=== PATIENT | male | born 1995 | race Caucasian/White ===

== ENCOUNTER 2016-12-15 14:24 | Emergency (ER) | payer OTHER ==
--- NOTE | 2016-12-15 14:52 | ER Document Report ---
ED Medical Screen (RME) - General Stated Complaint: POSSIBLE CYST Notes: 21 yo male c/o cyst to penis. noted about an 1 hr ago. pt was having sex, says cyst ruptured.
[2016-12-15 14:55] VITALS: BP 137/75
--- NOTE | 2016-12-15 16:34 | ER Document Report ---
HPI - HPI Patient complains to provider of: possible cyst on penis Onset: This afternoon - 12 noon Onset/Duration: Sudden Pain Level: 3 Context: 21-year-old male having intercourse with his at noon today noticed a swelling that was fluid-filled just below the head of his penis. There is no pain or irritation. No open sores. This is never occurred before. His is willing to be the standby in the room. Hx psoriasis, but never had on penis Associated Symptoms: None Exacerbated by: Denies Relieved by: Denies Similar symptoms previously: No Recently seen / treated by doctor: No - ROS ROS below otherwise negative: Yes Systems Reviewed and Negative: Yes All other systems reviewed and negative - DERM Skin Color: Normal Past Medical History - General Information source: Patient - Social History Smoking Status: Current Every Day Smoker Chew tobacco use (# tins/day): No Frequency of alcohol use: None Drug Abuse: None Lives with: Spouse/Significant other Family History: Reviewed & Not Pertinent Patient has suicidal ideation: No Patient has homicidal ideation: No Renal/ Medical History: Denies: Hx Peritoneal Dialysis Skin Medical History: Reports Hx Psoriasis Past Surgical History: Reports: Other - male benign breast tissue removed Vertical Provider Document - CONSTITUTIONAL Agree With Documented VS: Yes Exam Limitations: No Limitations - INFECTION CONTROL TRAVEL OUTSIDE OF THE [place] IN LAST 30 DAYS: No - HEENT HEENT: Normocephalic - NECK Neck: Supple - RESPIRATORY O2 Sat by Pulse Oximetry: 96 - MUSCULOSKELETAL/EXTREMETIES Musculoskeletal/Extremeties: MAEW, FROM - NEURO Level of Consciousness: Awake, Alert - DERM Integumentary: Rash - mild inflamed head of penis psoriasis lesions Course - Re-evaluation Re-evalutation: 12/15/16 16:50 prior to exam he states that the swelling has gone down, but now sees rash. - Vital Signs Vital signs: Temp Pulse Resp BP Pulse Ox 98.1 F 81 18 137/75 H 96 12/15/16 14:51 12/15/16 14:51 12/15/16 14:51 12/15/16 14:51 12/15/16 14:51 Discharge - Discharge Clinical Impression: psoriasis head of penis Condition: Good Disposition: HOME, SELF-CARE Instructions: Psoriasis ([facility]), Topical Steroid Cream or Ointment ([facility]) Additional Instructions: over The counter steroid ointment to the area 3 times a day. See the organ pipe maker metal if gets worse or persists To ER any concerns
== END 2016-12-15 17:01 | disposition home or self-care (01) ==
LOC: ER 14:24
DX: L40.9 Psoriasis, unspecified (principal); F17.200 Nicotine dependence, unspecified, uncomplicated
CPT/HCPCS: 99282

== ENCOUNTER 2018-02-14 07:56 | Observation (INO) | payer BC, OTHER ==
[2018-02-14] MEDS ORDERED: KETOROLAC TROMETHAMINE INJ/PF 30 MG/1 ML SDV IV ONE (08:28)
[2018-02-14] MEDS ORDERED: NORMAL SALINE 1000 ML 1,000 ML IV ONE ×2 (08:28→10:16)
--- NOTE | 2018-02-14 08:28 | ER Document Report ---
ED GI/ - General Chief Complaint: Abdominal Pain Stated Complaint: ABDOMINAL PAIN Time Seen by Provider: 02/14/18 08:28 Mode of Arrival: Ambulatory Information source: Patient Notes: 22-year-old male complaining of right lower quadrant and right flank pain for 2 days. This morning it is the worst it has been. He is unable to keep still and has nausea/vomiting. No penis or testicular pain no dysuria frequency or urgency. No hematuria. He has been taking mag citrate he thought that he was constipated, having diarrhea now. TRAVEL OUTSIDE OF THE [place] IN LAST 30 DAYS: No - Related Data Allergies/Adverse Reactions: Sulfa (Sulfonamide Antibiotics) Allergy (Verified 02/14/18 07:57) Past Medical History - General Information source: Patient - Social History Smoking Status: Never Smoker Frequency of alcohol use: None Drug Abuse: None Lives with: Family Family History: Reviewed & Not Pertinent Renal/ Medical History: Denies: Hx Peritoneal Dialysis Skin Medical History: Reports Hx Psoriasis Past Surgical History: Reports: Other - male benign breast tissue removed Review of Systems - Review of Systems Constitutional: No symptoms reported EENT: No symptoms reported Cardiovascular: No symptoms reported Respiratory: No symptoms reported Gastrointestinal: No symptoms reported Genitourinary: See HPI Male Genitourinary: No symptoms reported Musculoskeletal: No symptoms reported Skin: No symptoms reported Hematologic/Lymphatic: No symptoms reported Neurological/Psychological: No symptoms reported Physical Exam - Vital signs Vitals: Temp Pulse Resp BP Pulse Ox 98.1 F 58 L 22 H 148/86 H 100 02/14/18 08:01 02/14/18 08:01 02/14/18 08:01 02/14/18 08:01 02/14/18 08:01 Interpretation: Normal - General General appearance: Appears well, Alert In distress: Moderate Notes: pale - HEENT Head: Normocephalic, Atraumatic Eyes: Normal Conjunctiva: Normal Pupils: PERRL Pharynx: Normal Neck: Supple. No: Lymphadenopathy - Respiratory Respiratory status: No respiratory distress Chest status: Nontender Breath sounds: Normal Chest palpation: Normal - Cardiovascular Rhythm: Regular Heart sounds: Normal auscultation Murmur: No - Abdominal Inspection: Normal Distension: No distension Bowel sounds: Normal Tenderness: Tender - mild right middle and lower quadrant. No: Guarding, Rebound Organomegaly: No organomegaly - Back Back: Normal, Nontender. No: Tender - Extremities General upper extremity: Normal inspection, Nontender, Normal color, Normal ROM , Normal temperature General lower extremity: Normal inspection, Nontender, Normal color, Normal ROM , Normal temperature, Normal weight bearing. No: Doreen's sign - Neurological Neuro grossly intact: Yes Cognition: Normal Orientation: AAOx4 [place] Coma Scale Eye Opening: Spontaneous [place] Coma Scale Verbal: Oriented [place] Coma Scale Motor: Obeys Commands [place] Coma Scale Total: 15 Speech: Normal Motor strength normal: LUE, RUE, LLE, RLE Sensory: Normal - Psychological Associated symptoms: Normal affect, Normal mood - Skin Skin Temperature: Warm Skin Moisture: Dry Skin Color: Normal Skin irregularity: negative: Rash Course - Re-evaluation Re-evalutation: 02/14/18 10:[address] Thomas, appendix is retrocecal, no inflammation.Torodol did not help/ No blood in urine. no hydro on CT. called Dr. Gandara the general surgeon to come see the patient. 02/14/18 10:17 dr gandara is admitting the pt for abd pain. discussing this with the pt. 02/14/18 10:22 Patient feels a lot better he is comfortable now after the hydromorphone and he is willing to be admitted overnight - Vital Signs Vital signs: Temp Pulse Resp BP Pulse Ox 98.1 F 58 L 22 H 148/86 H 100 02/14/18 08:01 02/14/18 08:01 02/14/18 08:01 02/14/18 08:01 02/14/18 08:01 - Laboratory Result Diagrams: 02/14/18 08:45 02/14/18 08:45 Laboratory results interpreted by me: 02/14/18 02/14/18 08:45 08:45 WBC 14.0 H Seg Neutrophils % 84.4 H Lymphocytes % 11.4 L Absolute Neutrophils 11.8 H Sodium 145.4 H Glucose 118 H Discharge - Discharge Clinical Impression: Right sided abdominal pain, diarrhea Condition: Stable Disposition: ADMITTED OBSERVATION Admitting Provider: Surgicalist Unit Admitted: Surgical Floor Referrals: DESIRE MIRELES MD [Primary Care Provider] - Follow up as needed
[2018-02-14] MEDS ORDERED: ONDANSETRON 4 MG TAB.RAPDIS PO ONE (08:34)
[2018-02-14 09:01] LABS: ABSOLUTE BASOPHILS # (AUTO) 0.1 10^3/uL (0.0-0.2); ABSOLUTE LYMPHOCYTES (AUTO) 1.6 10^3/uL (0.5-4.7); ABSOLUTE MONOCYTES (AUTO) 0.4 10^3/uL (0.1-1.4); ABSOLUTE NEUT (AUTO) 11.8 10^3/uL (1.7-8.2); BASOPHILS % (AUTO) 0.9 % (0-2); EOSINOPHILS % (AUTO) 0.2 % (0-6); HEMATOCRIT 47.3 % (37.9-51.0); HEMOGLOBIN 15.8 g/dL (13.5-17.0); LYMPHOCYTES % (AUTO) 11.4 % (13-45); MEAN CORPUSCULAR HEMOGLOBIN 29.1 pg (27.0-33.4); MEAN CORPUSCULAR HGB CONC 33.5 g/dL (32.0-36.0); MEAN CORPUSCULAR VOLUME 87 fl (80-97); MONOCYTES % (AUTO) 3.1 % (3-13); PLATELET COUNT 280 10^3/uL (150-450); RED BLOOD COUNT 5.43 10^6/uL (4.35-5.55); SEGMENTED NEUTROPHILS % (AUTO) 84.4 % (42-78); TOTAL CELLS COUNTED % (AUTO) 100 %
[2018-02-14 09:20] LABS: ALANINE AMINOTRANSFERASE 34 U/L (21-72); ALBUMIN 4.8 g/dL (3.5-5.0); ALKALINE PHOSPHATASE 87 U/L (38-126); ANION GAP 15 (5-19); ASPARTATE AMINO TRANSFERASE 25 U/L (17-59); BILIRUBIN,DIRECT 0.3 mg/dL (0.0-0.4); BILIRUBIN,TOTAL 0.4 mg/dL (0.2-1.3); BLOOD UREA NITROGEN 9 mg/dL (7-20); CALCIUM 10.2 mg/dL (8.4-10.2); CARBON DIOXIDE 27 mmol/L (22-30); CHLORIDE 103 mmol/L (98-107); GLUCOSE 118 mg/dL (75-110); LIPASE 124.5 U/L (23-300); POTASSIUM 4.7 mmol/L (3.6-5.0); SODIUM 145.4 mmol/L (137-145); TOTAL PROTEIN 7.3 g/dL (6.3-8.2)
[2018-02-14] MEDS ORDERED: HYDROMORPHONE HCL INJ/PF 2 MG/ML AMPULE IM ONE (09:41)
[2018-02-14] MEDS ORDERED: HYDROMORPHONE HCL INJ/PF 2 MG/ML AMPULE IV ONE (09:42)
--- NOTE | 2018-02-14 09:43 | RADIOLOGY REPORT (SQ) ---
EXAM DESCRIPTION: CT ABD/PELVIS WITH IV ONLY COMPLETED DATE/TIME: 02/14/2018 9:29 am REASON FOR STUDY: RLQ and rt flank pain COMPARISON: None. TECHNIQUE: CT scan of the abdomen and pelvis performed using helical scanning technique with dynamic intravenous contrast injection. No oral contrast. Images reviewed with lung, soft tissue, and bone windows. Reconstructed coronal and sagittal MPR images reviewed. Delayed images for evaluation of the urinary system also acquired. All images stored on PACS. All CT scanners at this facility use dose modulation, iterative reconstruction, and/or weight based d osing when appropriate to reduce radiation dose to as low as reasonably achievable (ALARA). [facility]: Dose Right [facility]: CareDose [facility]: Dose Right [facility]: Teradose 4D [facility]: rumr CONTRAST TYPE AND DOSE: contrast/concentration: Isovue 370.00 mg/ml; Total Contrast Delivered: 100.0 ml; Total Saline Delivered: 70.0 ml RENAL FUNCTION: Creatinine 0.76 RADIATION DOSE: CT Rad equipment meets quality standard of care and radiation dose reduction techniq ues were employed. CTDIvol: 11.8 - 16.7 mGy. DLP: 1678 mGy-cm.. LIMITATIONS: None. FINDINGS: LOWER CHEST: No significant findings. No nodules or infiltrates. LIVER: Normal size. No masses. No dilated ducts. SPLEEN: Normal size. No focal lesions. PANCREAS: No masses. No significant calcifications. No adjacent inflammation or peripancreatic fluid collections. Pancreatic duct not dilated. GALLBLADDER: No identified stones by CT criteria. No inflammatory changes to suggest cholecystitis. ADRENAL GLANDS: No significant masses or asymmetry. RIGHT KIDNEY AND URETER: No solid masses. No significant calcifications. No hydronephrosis or hyd roureter. LEFT KIDNEY AND URETER: No solid masses. No significant calcifications. No hydronephrosis or hydr oureter. AORTA AND VESSELS: No aneurysm. No dissection. Renal arteries, SMA, celiac without stenosis. RETROPERITONEUM: No retroperitoneal adenopathy, hemorrhage or masses. BOWEL AND PERITONEAL CAVITY: No masses or inflammatory changes. No free fluid or peritoneal masses. APPENDIX: Normal. PELVIS: No mass. No free fluid. Normal bladder. ABDOMINAL WALL: No masses. No hernias. BONES: No significant or acute findings. OTHER: No other significant finding. IMPRESSION: NO SIGNIFICANT OR ACUTE FINDING IN THE ABDOMEN OR PELVIS ON CT SCAN WITH IV CONTRAST. TECHNICAL DOCUMENTATION: JOB ID: [id number] Quality ID # [id number]: Final reports with documentation of one or more dose reduction techniques (e.g., Au tomated exposure control, adjustment of the mA and/or kV according to patient size, use of iterative reconstruction technique) 2010 [employer]- All Rights Reserved Reading location - IP/workstation name: [email or web address]
[2018-02-14 09:51] LABS: AMORPHOUS SEDIMENT,URINE TRACE /HPF; APPEARANCE,URINE CLOUDY; BILIRUBIN,URINE NEGATIVE (NEGATIVE); COLOR,URINE YELLOW; GLUCOSE, URINE NEGATIVE (NEGATIVE); KETONES,URINE NEGATIVE (NEGATIVE); LEUKOCYTE ESTERASE,URINE NEGATIVE (NEGATIVE); NITRITE,URINE NEGATIVE (NEGATIVE); PROTEIN,URINE NEGATIVE (NEGATIVE); URINE SPECIFIC GRAVITY 1.017; UROBILINOGEN,URINE NEGATIVE mg/dL (<2.0)
--- NOTE | 2018-02-14 10:56 | PDOC H&P ---
History of Present Illness Admission Date/PCP: 02/14/18 10:23 DESIRE MIRELES MD Patient complains of: right lower quadrant pains radiating to the back History of Present Illness: SHARON GRISSOM is a 22 year old male who has been having intermittent diarrhea and constipation. At 1 am today c/o excruciating pains on the right lower quadrant radiating to the back asso with nausea. Went to ED and CT scan only showed retrocecal appendix but no inflammation. Past Medical History Skin Medical History: Reports: Psoriasis Past Surgical History Past Surgical History: Reports: Other - male benign breast tissue removed Social History Lives with: Family Smoking Status: Never Smoker Family History Family History: Reviewed & Not Pertinent Parental Family History Reviewed: Yes Children Family History Reviewed: No Sibling(s) Family History Reviewed.: No Medication/Allergy Allergies/Adverse Reactions: Sulfa (Sulfonamide Antibiotics) Allergy (Verified 02/14/18 07:57) Review of Systems Constitutional: PRESENT: as per HPI Physical Exam Vital Signs: Temp Pulse Resp BP Pulse Ox 97.8 F 60 16 116/50 L 99 02/14/18 10:33 02/14/18 10:33 02/14/18 10:33 02/14/18 10:33 02/14/18 10:33 General appearance: PRESENT: mild distress GI/Abdominal exam: PRESENT: soft, tenderness - RLQ Results Impressions: Abdomen/Pelvis CT 02/14/18 08:34 IMPRESSION: NO SIGNIFICANT OR ACUTE FINDING IN THE ABDOMEN OR PELVIS ON CT SCAN WITH IV CONTRAST. Assessment & Plan - Diagnosis (1) Right sided abdominal pain Is this a current diagnosis for this admission?: Yes - Time Time Spent: 30 to 50 Minutes - Plan Summary Plan Summary: Keep NPO Hold antibiotics PRN med for severe pain Serial evaluation
[2018-02-14] MEDS ORDERED: KETOROLAC TROMETHAMINE INJ/PF 30 MG/1 ML SDV IV PRN (16:09)
[2018-02-14] MEDS: NORMAL SALINE 1000 ML 1,000 ML IV PRN (16:32)
[2018-02-14] MEDS ORDERED: ONDANSETRON HCL INJ/PF 4 MG/2 ML SDV IV PRN (16:48)
[2018-02-14] MEDS ORDERED: GLUCAGON,HUMAN RECOMB 1 MG INJ SUBCUT PRN (16:48)
[2018-02-14] MEDS ORDERED: DEXTROSE 50%-WATER 25 GM/50 ML DISP.SYRIN IV PRN ×2 (16:48)
[2018-02-14] MEDS ORDERED: DEXTROSE 40% GEL 15 GM TUBE PO PRN ×2 (16:48)
--- NOTE | 2018-02-14 17:49 | RADIOLOGY REPORT (SQ) ---
EXAM DESCRIPTION: ACUTE ABDOMEN SERIES COMPLETED DATE/TIME: 02/14/2018 5:41 pm REASON FOR STUDY: Abdominal Pains COMPARISON: CT dated 02/14/2018. NUMBER OF VIEWS: Three views. TECHNIQUE: Frontal chest, supine abdomen and upright/decubitus abdomen radiographic images acquired. LIMITATIONS: None. FINDINGS: CHEST: Lungs clear of infiltrates. FREE AIR: None. No abnormal gas collections. BOWEL GAS PATTERN: Nonobstructive pattern. No dilated loops or air fluid levels. CALCIFICATIONS: No suspicious calcifications. HARDWARE: None in the abdomen. SOFT TISSUES: No gross mass or suggestion of organomegaly. BONES: No acute fracture. No worrisome bone lesions. OTHER: No other significant finding. IMPRESSION: NO RADIOGRAPHIC EVIDENCE FOR ACUTE ABDOMINAL DISEASE. TECHNICAL DOCUMENTATION: JOB ID: [id number] [employer]- All Rights Reserved Reading location - IP/workstation name: [email or web address]
[2018-02-14] MEDS: MORPHINE SULFATE 10 MG/ML INJ IV PRN (18:45)
--- NOTE | 2018-02-14 21:58 | PDOC PROGRESS REPORT ---
Subjective Progress Note for:: 02/14/18 Subjective:: RLQ pains Reason For Visit: ABDOMINAL PAINS Physical Exam Vital Signs: Temp Pulse Resp BP Pulse Ox 98.5 F 44 L 17 132/64 H 97 02/14/18 19:25 02/14/18 19:25 02/14/18 19:25 02/14/18 19:25 02/14/18 19:25 Intake & Output 02/13/18 02/14/18 02/15/18 06:59 06:59 06:59 Weight 105.8 kg Exam: Had morphine at 6 pm because of pains Abd is soft and non tender when examined at 8 pm Doubt acute appendicitis. Told him to hold off pain meds until i see him first before the nurses give it. Recheck CBC in am. Results Impressions: Abdomen/Pelvis CT 02/14/18 08:34 IMPRESSION: NO SIGNIFICANT OR ACUTE FINDING IN THE ABDOMEN OR PELVIS ON CT SCAN WITH IV CONTRAST. Acute Abdomen Series 02/14/18 16:51 IMPRESSION: NO RADIOGRAPHIC EVIDENCE FOR ACUTE ABDOMINAL DISEASE. Assessment & Plan - Diagnosis (1) Right sided abdominal pain Is this a current diagnosis for this admission?: Yes
[2018-02-15 05:32] LABS: ABSOLUTE BASOPHILS # (AUTO) 0.1 10^3/uL (0.0-0.2); ABSOLUTE EOSINOPHILS # (AUTO) 0.3 10^3/uL (0.0-0.6); ABSOLUTE LYMPHOCYTES (AUTO) 2.8 10^3/uL (0.5-4.7); ABSOLUTE MONOCYTES (AUTO) 0.6 10^3/uL (0.1-1.4); ABSOLUTE NEUT (AUTO) 4.8 10^3/uL (1.7-8.2); BASOPHILS % (AUTO) 0.7 % (0-2); EOSINOPHILS % (AUTO) 3.7 % (0-6); HEMATOCRIT 41.4 % (37.9-51.0); LYMPHOCYTES % (AUTO) 32.7 % (13-45); MEAN CORPUSCULAR HEMOGLOBIN 29.8 pg (27.0-33.4); MEAN CORPUSCULAR HGB CONC 33.8 g/dL (32.0-36.0); MEAN CORPUSCULAR VOLUME 88 fl (80-97); MONOCYTES % (AUTO) 7.3 % (3-13); PLATELET COUNT 203 10^3/uL (150-450); RED CELL DISTRIBUTION WIDTH 12.8 % (11.5-14.0); SEGMENTED NEUTROPHILS % (AUTO) 55.6 % (42-78); TOTAL CELLS COUNTED % (AUTO) 100 %; WHITE BLOOD COUNT 8.7 10^3/uL (4.0-10.5)
[2018-02-15 05:45] LABS: ALANINE AMINOTRANSFERASE 31 U/L (21-72); ALBUMIN 3.6 g/dL (3.5-5.0); ALKALINE PHOSPHATASE 60 U/L (38-126); ANION GAP 10 (5-19); ASPARTATE AMINO TRANSFERASE 20 U/L (17-59); BILIRUBIN,DIRECT 0.1 mg/dL (0.0-0.4); BILIRUBIN,TOTAL 0.6 mg/dL (0.2-1.3); BLOOD UREA NITROGEN 11 mg/dL (7-20); CALCIUM 8.9 mg/dL (8.4-10.2); CARBON DIOXIDE 28 mmol/L (22-30); CHLORIDE 109 mmol/L (98-107); GLUCOSE 93 mg/dL (75-110); LIPASE 184.5 U/L (23-300); POTASSIUM 4.5 mmol/L (3.6-5.0); SODIUM 147.3 mmol/L (137-145); TOTAL PROTEIN 5.5 g/dL (6.3-8.2)
[2018-02-15] MEDS: MORPHINE SULFATE 10 MG/ML INJ IV PRN (05:47)
[2018-02-15] MEDS: NORMAL SALINE 1000 ML 1,000 ML IV PRN (06:47)
[2018-02-15 13:48] VITALS: BP 113/65
[2018-02-16] MEDS ORDERED: NORMAL SALINE 1000 ML 1,000 ML IV ONE (10:16)
== END 2018-02-15 14:00 | disposition home or self-care (01) ==
LOC: ER 07:56 → EH 10:23 → 4S 16:41
PROVIDERS: ATTEND Surgery
DX: R10.31 Right lower quadrant pain (principal); R19.7 Diarrhea, unspecified; K59.00 Constipation, unspecified; R11.2 Nausea with vomiting, unspecified
CPT/HCPCS: 96376; 99285; 96361; 96374; 96375; 36415 ×2; 83690 ×2; 85025 ×2; 80053 ×2; 81001; 74022; 74177; G0378 ×2; S0119; J1885; J2270 ×2; J1170; J2405; J7030 ×2

== ENCOUNTER 2018-11-11 02:46 | Emergency (ER) | payer BC ==
[2018-11-11 02:54] VITALS: BP 169/81
== END 2018-11-11 03:40 | disposition left against medical advice (07) ==
LOC: ER 02:46
DX: Z53.21 Procedure and treatment not carried out due to patient leaving prior to being seen by health care provider (principal)